=== PATIENT | male | born 1970 ===

== ENCOUNTER 2020-09-26 16:31 | Inpatient (IN) | payer SELFPAY ==
[~2020-09-26 16:31] MED LIST: Iopamidol-370 76% 500 ML 1 ML ONE
[2020-09-26 17:09] LABS: #Eosinphils 0.1 thou/uL (0.0-0.7); #Lymphocytes 2.3 thou/uL (1.20-3.40); #Monocytes 0.8 thou/uL (0.11-0.59); #Neutrophils 4.3 thou/uL (1.40-6.50); %Basophils 0.2 % (0.0-1.0); %Eosinophils 1.1 % (0.0-10.0); %Lymphocytes 30.2 % (21.0-51.0); %Monocytes 10.5 % (0.0-10.0); %Neutrophils 58.1 % (42.0-75.0); Hemoglobin 14.8 g/dL (14.0-18.0); Mean Corpuscular HGB CONC 35.7 g/dL (32.0-36.0); Mean Corpuscular Hemoglobin 30.8 pg (27.0-31.0); Mean Corpuscular Volume 86.1 fL (78.0-98.0); Mean Platelet Volume 8.5 fL (7.4-10.4); Platelet Count 264 thou/uL (130-400); RBC Distribution Width 11.5 % (11.5-14.5); Red Blood Cell (RBC) Count 4.82 mill/uL (4.70-6.10); White Blood Cell (WBC) Count 7.5 thou/uL (4.8-10.8)
--- NOTE | 2020-09-26 17:12 | RAD ---
XR Chest 1 View Portable HISTORY: Cough, shortness of breath COMPARISON: None FINDINGS: The heart size is normal. The lungs are well expanded without lobar consolidation, pneumothorax or p leural effusions. There are mild patchy peripheral opacities, left greater than right. Possibility of viral pneumonia s hould be considered.
[2020-09-26] MEDS ORDERED: Dexamethasone 10 MG/ML VIAL ONE (17:17)
[2020-09-26] MEDS ORDERED: Ondansetron PF 4 MG/2 ML Vial ONE (17:17)
[2020-09-26 17:36] LABS: ALT (SGPT) 32 U/L (8-55); AST (SGOT) 20 U/L (5-34); Albumin 3.8 g/dL (3.5-5.0); Alkaline Phosphatase 97 U/L (40-110); Anion Gap 25 mmol/L (10-20); BUN (Urea Nitrogen) 21 mg/dL (8.9-20.6); Bilirubin, Total 0.6 mg/dL (0.2-1.2); CK (CPK) 16 U/L (30-200); Calc. Creatinine Clearance 0 mL/min (70-130); Calcium 9.5 mg/dL (7.8-10.44); Carbon Dioxide 17 mmol/L (22-29); Chloride 95 mmol/L (98-107); Globulin 4.3 g/dL (2.4-3.5); Glucose 416 mg/dL (70-105); Lipase 58 U/L (8-78); Magnesium 2.2 mg/dL (1.6-2.6); Potassium 3.7 mmol/L (3.5-5.1); Protein, Total 8.1 g/dL (6.0-8.3); Sodium 133 mmol/L (136-145)
[2020-09-26 18:22] LABS: SARS-CoV-2 NAA Rapid Test DETECTED (NotDetected)
--- NOTE | 2020-09-26 18:40 | CT ---
CT PULMONARY ANGIOGRAM WITH IV CONTRAST AND 3D POSTPROCESSIN09/26/20 HISTORY: Cough, shortness of breath, elevated D-dimer. FINDINGS: No filling defects are seen in the pulmonary arterial vasculature to suggest pulmonary embolism. The thoracic aorta is well opacified without aneurysmal dissection. No pleural or pericardial effusions a re seen. No mediastinal, hilar, axillary mass or lymphadenopathy seen. no pneumothoraces are identifi ed. There are multifocal patchy predominantly peripheral ground glass opacities bilaterally. The upper abdominal tomograms are unremarkable. There are mild degenerative changes in the spine. IMPRESSION: 1. No CT evidence of pulmonary embolism. 2. Findings suspicious for pneumonia. Clinically correlate for COVID-19 infection. POS: OFF
--- NOTE | 2020-09-26 19:11 | PDOC.FPRHP ---
- History of Present Illness Chief Complaint: cough, SOB x 10 days, worsening SOB History of Present Illness: This is a 50yo M here with CC of cough and SOB x 10 days. He started feeling more SOB over the last 2-3 days. He called his PCP then and was given a zpack and albuterol inhaler. He checked his pulse ox at home and it was 86% on RA. When ambulates goes into the 80s. He decided to come in due to this. He reports that he has not been able to drink or eat much over the last 2-3 days due to feeling more SOB. He denies any fever, endorses mild chill. Endorses dry cough. Denies sore throat, loss of taste or smell. Endorses joint pain in his knees especially. Of note, he has a hx of parkinsons disease. He has a tremor and memory issues because of this. He does take medication, he is unsure what meds he is on. He also has a hx of DM, he does not think he is on insulin. He has lost about 80lbs over the last year that he attributes to his parkinsons. ED Course: zofran, 1L NS, 8mg dexamethasone - Allergies/Adverse Reactions Allergies Allergy/AdvReac Type Severity Reaction Status Date / Time No Known Allergies Allergy Verified 09/27/20 00:17 - History PMHx: Parkinsons, DM2, HTN, childhood asthma PSHx: jaw reconstruction, R knee surgery as youth x 2, hernia surgery, L wrist repair FHx: non contributory Social: drinks socially about twice a month, denies drug use, no smoking hx; lives at home with family - Review of Systems General: reports: fever/chills, weight/appetite/sleep changes, fatigue. denies: night sweats Eyes: denies: vision changes ENT: denies: nasal congestion, rhinorrhea Respiratory: reports: shortness of breath. denies: cough, congestion, exercise intolerance Cardiovascular: denies: chest pain, palpitation, edema, paroxysmal nocturnal dyspnea, orthopnea Gastrointestinal: denies: nausea, vomiting, diarrhea, constipation, abdominal pain Skin: denies: rashes, lesions, jaundice Musculoskeletal: reports: pain. denies: swelling Neurological: denies: syncope, weakness Psychological: denies: anxiety, depression - Vital signs BP: 120/86, Pulse: 110, Resp: 24, O2 sat: 97 on (1L Oxygen), Time: 09/26/2020 18:53. Weight 95kg BP: 115/84, Pulse: 120, Resp: 19, Temp: 98.3 (Oral), Pain: 3, O2 sat: 92 on (Room Air), Time: 09/26/2020 16:32. - Physical Exam Constitutional: NAD, awake, alert and oriented, well developed -Constitutional: flat affect HEENT: normocephalic and atraumatic, PERRLA, EOMI, grossly normal vision, grossly normal hearing -HEENT: MM dry Neck: supple, FROM, trachea midline Heart: RRR, normal S1/S2, no murmurs/rubs/gallops, pulses present, no edema Lungs: CTAB, no wheezing -Lungs: poor insp effort Abdomen: soft, non-tender, bowel sounds present, no masses/distention, no hernias Musculoskeletal: normal structure, normal tone, ROM grossly normal Neurological: no focal deficit, CN II-XII intact Skin: no rash/lesions, good turgor, capillary refill <2 seconds Heme/Lymphatic: no unusual bruising or bleeding, no purpura, no petechia -Psychiatric: flat affect, unable to recall medications, reports memory issues FMR H&P: Results - Labs Result Diagrams: 09/26/20 16:52 09/26/20 20:25 Lab results: WBC 7.5 thou/uL (4.8-10.8) 09/26/20 16:52 Hgb 14.8 g/dL (14.0-18.0) 09/26/20 16:52 Hct 41.5 % (42.0-52.0) L 09/26/20 16:52 MCV 86.1 fL (78.0-98.0) 09/26/20 16:52 Plt Count 264 thou/uL (130-400) 09/26/20 16:52 Neutrophils % 58.1 % (42.0-75.0) 09/26/20 16:52 Sodium 133 mmol/L (136-145) L 09/26/20 16:52 Potassium 3.7 mmol/L (3.5-5.1) 09/26/20 16:52 Chloride 95 mmol/L (98-107) L 09/26/20 16:52 Carbon Dioxide 17 mmol/L (22-29) L 09/26/20 16:52 BUN 21 mg/dL (8.9-20.6) H 09/26/20 16:52 Creatinine 1.50 mg/dL (0.7-1.3) H 09/26/20 16:52 Glucose 416 mg/dL (70-105) H 09/26/20 16:52 Calcium 9.5 mg/dL (7.8-10.44) 09/26/20 16:52 Total Bilirubin 0.6 mg/dL (0.2-1.2) 09/26/20 16:52 AST 20 U/L (5-34) 09/26/20 16:52 ALT 32 U/L (8-55) 09/26/20 16:52 Alkaline Phosphatase 97 U/L (40-110) 09/26/20 16:52 Creatine Kinase 16 U/L (30-200) L 09/26/20 16:52 Serum Total Protein 8.1 g/dL (6.0-8.3) 09/26/20 16:52 Albumin 3.8 g/dL (3.5-5.0) 09/26/20 16:52 Lipase 58 U/L (8-78) 09/26/20 16:52 - Radiology Interpretation Other Status: report reviewed by me (CTA neg for PE; multifocal patchy ground glass opacities) Chest x-ray Status: report reviewed by me (mild patchy peripheral opacities, L>R) FMR H&P: A/P - Plan Acute hypoxic resp failure 2/2 COVID PNA Pulse ox 86% on RA at home. Satting well on 1L NC in the ER. S/p dexamethasone. CTA neg for PE. CXR cw covid.Flu neg. - Will continue steroids. Will place order for conv plasma. Will continue duon ebs. Out of window for remdesivir. - Procal pending, will hold off on abx for now. - Awake proning as able - Ddimer elevated (0.83), will do ppx lovenox. Trend q2days - Continue NC as needed and try to ween as tolerated CRISELDA Bun/Cr 21/1.5. Unknown baseline. - Will give IVF, trend BUN/Cr DM2 with anion gap Glucose of 416 on arrival. Gap of 21. - Will get BHB, urine to check for ketones, VBG, serum osm - Will give 2 additional liters, continue mIVF - Will recheck BMP in 4 hours to make sure gap is trending in right direction Parkinsons disease - aware, continue home meds Dispo: admit to medical, inpt Diet: CC Code: DNR - confirmed with patient PCP: [facility] Case discussed with Dr. Reddy Addendum - Attending - Attending Attestation Date/Time: 09/26/202023 I personally evaluated the patient and discussed the management with Dr. Ferris. I agree with the History, Examination, Assessment and Plan documented above with any addition or exceptions noted below. The patient is admitting with covid pneumonia and acute hypoxic respiratory f ailure. Pt is requiring oxygen via nasal cannula. Will start decadron, convalescent plasma. Titrate o2, trend labs.
[2020-09-26] MEDS ORDERED: Acetaminophen 650 MG Suppository PR PRN (19:22)
[2020-09-26] MEDS ORDERED: Acetaminophen 325 MG TAB PO PRN (19:22)
[2020-09-26] MEDS ORDERED: HumaLOG 300 UNITS/3 ML VIAL SC PRN ×2 (19:22→23:43)
[2020-09-26] MEDS ORDERED: Dextrose 50% Abboject 50 ML SYRINGE SLOW IVP PRN (19:22)
[2020-09-26] MEDS ORDERED: Dextrose 5% in Water 1,000 ML IV PRN (19:22)
[2020-09-26] MEDS ORDERED: Lactated Ringer's 1,000 ML IV SCH (19:30)
[2020-09-26] MEDS ORDERED: Insulin Regular 300 UNITS/3 ML VIAL ONE (20:12)
[2020-09-26 21:03] LABS: Hemoglobin A1c 13.8 % (4.0-6.0)
[2020-09-26 21:15] LABS: Anion Gap 21 mmol/L (10-20); BUN (Urea Nitrogen) 20 mg/dL (8.9-20.6); Calc. Creatinine Clearance 0 mL/min (70-130); Calcium 9.1 mg/dL (7.8-10.44); Carbon Dioxide 17 mmol/L (22-29); Chloride 99 mmol/L (98-107); Glucose 413 mg/dL (70-105); Potassium 4.4 mmol/L (3.5-5.1); Sodium 133 mmol/L (136-145)
[2020-09-26 22:38] VITALS: BMI 27.7
[2020-09-26] MEDS: Lactated Ringer's 1,000 ML IV SCH (23:19)
[2020-09-26] MEDS: HumaLOG 300 UNITS/3 ML VIAL SC PRN (23:30)
[2020-09-27] MEDS: HumaLOG 300 UNITS/3 ML VIAL SC PRN ×3 (01:03→06:12)
[2020-09-27 01:33] LABS: Anion Gap 20 mmol/L (10-20); BUN (Urea Nitrogen) 23 mg/dL (8.9-20.6); Calc. Creatinine Clearance 86 mL/min (70-130); Calcium 8.5 mg/dL (7.8-10.44); Carbon Dioxide 16 mmol/L (22-29); Chloride 100 mmol/L (98-107); Potassium 4.2 mmol/L (3.5-5.1); Sodium 132 mmol/L (136-145)
[2020-09-27 01:38] LABS: Glucose 564 mg/dL (70-105)
[2020-09-27] MEDS: Lactated Ringer's 1,000 ML IV SCH ×4 (02:13→21:59)
[2020-09-27 05:00] LABS: #Lymphocytes 0.8 thou/uL (1.20-3.40); #Monocytes 0.3 thou/uL (0.11-0.59); #Neutrophils 3.6 thou/uL (1.40-6.50); %Basophils 0.2 % (0.0-1.0); %Eosinophils 0.2 % (0.0-10.0); %Lymphocytes 16.5 % (21.0-51.0); %Monocytes 5.9 % (0.0-10.0); %Neutrophils 77.3 % (42.0-75.0); Mean Corpuscular HGB CONC 34.5 g/dL (32.0-36.0); Mean Corpuscular Hemoglobin 29.8 pg (27.0-31.0); Mean Corpuscular Volume 86.3 fL (78.0-98.0); Mean Platelet Volume 8.3 fL (7.4-10.4); Platelet Count 244 thou/uL (130-400); RBC Distribution Width 11.4 % (11.5-14.5); Red Blood Cell (RBC) Count 4.03 mill/uL (4.70-6.10); White Blood Cell (WBC) Count 4.7 thou/uL (4.8-10.8)
[2020-09-27 05:17] LABS: Anion Gap 18 mmol/L (10-20); BUN (Urea Nitrogen) 21 mg/dL (8.9-20.6); Calc. Creatinine Clearance 95 mL/min (70-130); Calcium 8.9 mg/dL (7.8-10.44); Carbon Dioxide 18 mmol/L (22-29); Chloride 103 mmol/L (98-107); Glucose 355 mg/dL (70-105); Potassium 3.7 mmol/L (3.5-5.1); Sodium 135 mmol/L (136-145)
[2020-09-27] MEDS ORDERED: HumaLOG 300 UNITS/3 ML VIAL SC PRN ×2 (08:21→18:28)
[2020-09-27] MEDS: Enoxaparin Sodium 40 MG/0.4 ML SYRINGE SC SCH (08:31)
[2020-09-27] MEDS: Dexamethasone 4 MG TAB PO SCH (08:32)
[2020-09-27 10:12] LABS: Anion Gap 19 mmol/L (10-20); BUN (Urea Nitrogen) 18 mg/dL (8.9-20.6); Calc. Creatinine Clearance 110 mL/min (70-130); Carbon Dioxide 19 mmol/L (22-29); Chloride 104 mmol/L (98-107); Glucose 257 mg/dL (70-105); Potassium 3.9 mmol/L (3.5-5.1); Sodium 138 mmol/L (136-145)
[2020-09-27] MEDS ORDERED: metFORMIN 500 MG TAB PO SCH (10:45)
[2020-09-27] MEDS ORDERED: Insulin Glargine 10 UNITS in Pre-Filled Syringe 1 EACH SC SCH (10:45)
--- NOTE | 2020-09-27 10:48 | PDOC.FM ---
- Subjective Subjective: Pt reports feeling well, he is on O2 but denies SOB and cough at this point. no new complaints - Objective Vital Signs & Weight: Vital Signs (12 hours) Temp Pulse Pulse Resp BP BP Pulse Ox 09/27/20 08:00 98 F 100 18 125/68 94 L 09/27/20 05:30 97.6 F 89 12 115/67 99 09/27/20 04:35 98.0 F 99 13 116/68 95 09/27/20 04:01 98.0 F 96 15 113/70 100 09/27/20 00:38 98.8 F 107 H 20 133/77 97 Weight Weight 92.703 kg I&O: 09/26/20 09/27/20 09/28/20 06:59 06:59 06:59 Intake Total 3632 Balance 3632 Result Diagrams: 09/27/20 04:51 09/27/20 14:15 Phys Exam - Physical Examination Constitutional: NAD HEENT: moist MMs, sclera anicteric Neck: supple, full ROM Respiratory: no wheezing mild crackles diffusely Cardiovascular: RRR, no significant murmur Gastrointestinal: soft, non-tender Musculoskeletal: no edema, pulses present Neurological: normal sensation, moves all 4 limbs Psychiatric: normal affect, A&O x 3 Skin: no rash, normal turgor Dx/Plan - Plan Plan: Acute hypoxic resp failure 2/2 COVID PNA A- stable on 2L on o2. S/p dexamethasone. CTA neg for PE. CXR cw covid.Flu neg. P- dexamethasone and conv plasma. Will continue duonebs. Out of window for remdesivir. - Procal pending, will hold off on abx for now. - Awake proning as able - Ddimer elevated (0.83), will do ppx lovenox. Trend q2days - Continue NC as needed and try to ween as tolerated DKA A- greatly improved with SC insulin, nearly resolved. Glucose of 416 on arrival. Gap of 21. BG in 200s and Gap 14. P- will give 10u Lantus and continue aggressive SSI as gap almost closed -repeat BMP in 3 hours, start drip if no improvment -pt will need to plan to be DCd with insulin in addition to his home metformin and unknown second oral med. Will add the 10u lantus to any SSI he requires today and set that as basline daily insulin need Parkinsons disease - aware, continue home meds CRISELDA -resolved Code: DNI, cardiac only PCP: [facility] Addendum - Attending - Attending Attestation Date/Time: 09/27/20 [id number] I personally evaluated the patient and discussed the management with Dr. Chakraborty. I agree with the History, Examination, Assessment and Plan documented above with any addition or exceptions noted below. Pt is on 2 liters oxygen via nasal cannula. Will wean as able. He has received convalescent plasma and dexamethasone. Reagrding dka, repeating labs to recheck anion gap. Treating with insulin. A1c is elevated.
[2020-09-27 14:43] LABS: Anion Gap 18 mmol/L (10-20); BUN (Urea Nitrogen) 17 mg/dL (8.9-20.6); Calc. Creatinine Clearance 98 mL/min (70-130); Carbon Dioxide 21 mmol/L (22-29); Chloride 101 mmol/L (98-107); Glucose 330 mg/dL (70-105); Sodium 136 mmol/L (136-145)
--- NOTE | 2020-09-27 14:55 | PDOC.FMACP ---
Advance Care Planning - Problem (1) COVID-19 Status: Acute Code(s): U07.1 - COVID-19 (2) Parkinson disease Status: Acute Code(s): G20 - PARKINSON'S DISEASE (3) Diabetes mellitus Status: Acute Code(s): E11.9 - TYPE 2 DIABETES MELLITUS WITHOUT COMPLICATIONS (4) Palliative care encounter Status: Acute Code(s): Z51.5 - ENCOUNTER FOR PALLIATIVE CARE - Note Participants: patient, palliative care Summary: Introduced Advanced Care Planning. The diagnosis, prognosis and goals of care were discussed. Appropriate forms and documentation to accomplish the goals of care were discussed. All questions were answered. Discussed his disease process paired with Covid. Palliative care Registrar will follow up 09/28 to complete MPOA and Directive to Physician Confirmed cardiac only for resuscitation if needed. Time Spent (mins): 20
[2020-09-27] MEDS ORDERED: HumaLOG 300 UNITS/3 ML VIAL SC SCH (15:15)
[2020-09-27] MEDS ORDERED: Albuterol 200 PUFF (6.7GM INHALER) INH PRN (17:15)
[2020-09-27] MEDS: metFORMIN 500 MG TAB PO SCH (18:02)
[2020-09-27] MEDS ORDERED: Insulin Regular 300 UNITS/3 ML VIAL SC SCH (18:45)
[2020-09-27 19:35] LABS: Anion Gap 18 mmol/L (10-20); BUN (Urea Nitrogen) 19 mg/dL (8.9-20.6); Calc. Creatinine Clearance 96 mL/min (70-130); Carbon Dioxide 21 mmol/L (22-29); Chloride 102 mmol/L (98-107); Glucose 300 mg/dL (70-105); Potassium 3.7 mmol/L (3.5-5.1); Sodium 137 mmol/L (136-145)
[2020-09-28] MEDS ORDERED: HumaLOG 300 UNITS/3 ML VIAL SC SCH (00:45)
[2020-09-28 01:27] LABS: Anion Gap 16 mmol/L (10-20); BUN (Urea Nitrogen) 20 mg/dL (8.9-20.6); Calc. Creatinine Clearance 113 mL/min (70-130); Calcium 8.7 mg/dL (7.8-10.44); Carbon Dioxide 20 mmol/L (22-29); Chloride 104 mmol/L (98-107); Glucose 269 mg/dL (70-105); Potassium 3.4 mmol/L (3.5-5.1); Sodium 137 mmol/L (136-145)
[2020-09-28] MEDS: HumaLOG 300 UNITS/3 ML VIAL SC PRN ×6 (06:23→17:52)
[2020-09-28] MEDS: Lactated Ringer's 1,000 ML IV SCH ×4 (06:27→20:08)
[2020-09-28] MEDS: Dexamethasone 4 MG TAB PO SCH (08:00)
--- NOTE | 2020-09-28 08:39 | PDOC.FM ---
- Subjective Subjective: Doing well this morning, no acute events overnight. Weaned to RA and doing well. Ambulating. No n/v. Denies CP, SOB, CASE, vision changes. Eager for discharge. Has BG monitor at home, states has been on insulin in the past but not currently on insulin pre-admission. - Objective MAR Reviewed: Yes Vital Signs & Weight: Vital Signs (12 hours) Temp Pulse Resp BP Pulse Ox 09/28/20 04:00 97.4 F L 77 18 146/83 H 97 09/27/20 23:40 98.3 F 92 16 141/80 H 92 L Weight Weight 92.703 kg I&O: 09/27/20 09/28/20 09/29/20 06:59 06:59 06:59 Intake Total 3632 1984 Balance 3632 1984 Result Diagrams: 09/27/20 04:51 09/28/20 12:25 Phys Exam - Physical Examination Constitutional: NAD (resting comfortably) HEENT: moist MMs Neck: supple Respiratory: no wheezing, no rales, no rhonchi, clear to auscultation bilateral Cardiovascular: RRR, no significant murmur, no rub Gastrointestinal: soft, non-tender, positive bowel sounds Musculoskeletal: no edema Neurological: moves all 4 limbs Psychiatric: normal affect, A&O x 3 Dx/Plan (1) COVID-19 Code(s): U07.1 - COVID-19 Status: Acute (2) Diabetes mellitus Code(s): E11.9 - TYPE 2 DIABETES MELLITUS WITHOUT COMPLICATIONS Status: Acute (3) Parkinson disease Code(s): G20 - PARKINSON'S DISEASE Status: Acute - Plan Plan: 50yo M with h/o DMII, Parkinson's presented in DKA and Acute hypoxic respiratory failure 2/2 COVID PNA #Acute hypoxic resp failure 2/2 COVID PNA, improved - Initially on 2L NC - now weaned to RA and satting mid-90s - On dexa 6mg daily. CTA negative for PE - Procal negative, no indication for abx - Respiratory status overall improved, encourage ambulation, monitor #DKA, resolved - Initial AG of 21, BHB 3, BG 416 on arrival - S/p SC insulin, given 40u SS in past 24 hours - 20u Lantus this AM, will need continued titration with aggressive SS - Monitor lytes and replace as indicated - Repeat BMP at lunch - Will need close outpt monitoring upon discharge #Parkinsons disease - aware, continue home meds #CRISELDA -resolved Code: DNI, cardiac only PCP: ADAN IVF: LR @ 135cc/hr -> Decrease to 100cc/hr Diet: HH VTE: Lovenox Dispo: AHRF resolved, continue dexa for COVID-PNA. DKA resolved, will need better BG control prior to discharge. Continue to monitor and titrate meds. Anticipate d/c in next 24-48 hours pending clinical course. Addendum - Attending - Attending Attestation Date/Time: 09/28/20 [id number] I personally evaluated the patient and discussed the management with Dr. Gaxiola I agree with the History, Examination, Assessment and Plan documented above with any addition or exceptions noted below - Patient denies any complaints. Denies any SOB. Afebrile VSS. A/P: 1) Acute hypoxic resp failure secondary to COVID pneumonia- improved. 2) DM- poorly controlled; restarted on insulin. Continue with current meds. Possible d/c tomorrow.
[2020-09-28] MEDS ORDERED: Potassium Chloride 20 MEQ TAB PO SCH (08:45)
[2020-09-28] MEDS ORDERED: Insulin Glargine 20 UNITS in Pre-Filled Syringe 1 EACH SC SCH (09:00)
[2020-09-28] MEDS: Enoxaparin Sodium 40 MG/0.4 ML SYRINGE SC SCH (09:50)
[2020-09-28] MEDS: metFORMIN 500 MG TAB PO SCH ×2 (09:53→16:28)
--- NOTE | 2020-09-28 11:21 | PDOC.PALFU ---
Palliative Care Follow-up Note Palliative care completed MPOA and Directive to physician. Original given to patient and copies placed on chart for medical records. Palliative care will sign off as Directives addressed, discussed and completed.
[2020-09-28 12:52] LABS: Anion Gap 14 mmol/L (10-20); BUN (Urea Nitrogen) 17 mg/dL (8.9-20.6); Calc. Creatinine Clearance 120 mL/min (70-130); Calcium 8.8 mg/dL (7.8-10.44); Carbon Dioxide 23 mmol/L (22-29); Chloride 104 mmol/L (98-107); Glucose 326 mg/dL (70-105); Potassium 3.7 mmol/L (3.5-5.1); Sodium 137 mmol/L (136-145)
[2020-09-28] MEDS ORDERED: NPH, Human Insulin Isophane 300 UNIT/3 ML VIAL SC SCH (21:00)
[2020-09-29] MEDS: Lactated Ringer's 1,000 ML IV SCH ×2 (04:34→07:47)
[2020-09-29 06:50] LABS: #Eosinphils 0.1 thou/uL (0.0-0.7); #Lymphocytes 1.8 thou/uL (1.20-3.40); #Monocytes 0.6 thou/uL (0.11-0.59); %Eosinophils 1.4 % (0.0-10.0); %Lymphocytes 32.8 % (21.0-51.0); %Monocytes 10.8 % (0.0-10.0); Mean Corpuscular Hemoglobin 31.6 pg (27.0-31.0); Mean Corpuscular Volume 87.8 fL (78.0-98.0); Mean Platelet Volume 8.1 fL (7.4-10.4); Platelet Count 232 thou/uL (130-400); RBC Distribution Width 11.2 % (11.5-14.5); Red Blood Cell (RBC) Count 3.48 mill/uL (4.70-6.10); White Blood Cell (WBC) Count 5.5 thou/uL (4.8-10.8)
[2020-09-29 07:09] LABS: Anion Gap 14 mmol/L (10-20); BUN (Urea Nitrogen) 12 mg/dL (8.9-20.6); Calc. Creatinine Clearance 152 mL/min (70-130); Calcium 8.5 mg/dL (7.8-10.44); Carbon Dioxide 26 mmol/L (22-29); Chloride 103 mmol/L (98-107); Glucose 185 mg/dL (70-105); Potassium 3.3 mmol/L (3.5-5.1); Sodium 140 mmol/L (136-145)
[2020-09-29] MEDS: metFORMIN 500 MG TAB PO SCH ×2 (07:43→16:00)
[2020-09-29] MEDS: Dexamethasone 4 MG TAB PO SCH (07:44)
[2020-09-29] MEDS: Enoxaparin Sodium 40 MG/0.4 ML SYRINGE SC SCH (07:44)
[2020-09-29] MEDS ORDERED: Potassium Chloride 20 MEQ TAB PO SCH (08:00)
[2020-09-29] MEDS: HumaLOG 300 UNITS/3 ML VIAL SC PRN ×3 (08:27→16:14)
--- NOTE | 2020-09-29 08:30 | PDOC.FM ---
- Subjective Subjective: Doing well this morning, no acute events overnight. Good spirits. Eager for discharge. Ambulating in the room well. Denies any CP, SOB, n/v, fever/chills, diaphoresis, CASE, vision changes. Tolerating PO well, states has outpt PCP and can follow up this week with them. Has test strips and glucometer at home. Able to afford NPH in past. - Objective MAR Reviewed: Yes Vital Signs & Weight: Vital Signs (12 hours) Temp Pulse Resp BP Pulse Ox 09/29/20 07:53 97.8 F 85 16 150/90 H 92 L 09/29/20 04:43 97.5 F L 63 20 145/82 H 93 L 09/29/20 00:39 97.8 F 64 18 147/88 H 93 L Weight Weight 92.703 kg I&O: 09/28/20 09/29/20 09/30/20 06:59 06:59 06:59 Intake Total 1984 1320 Balance 1984 1320 Result Diagrams: 09/29/20 06:15 09/29/20 06:15 Phys Exam - Physical Examination Constitutional: NAD (good spirits, comfortable) HEENT: moist MMs Neck: supple Respiratory: no wheezing, no rales, no rhonchi, clear to auscultation bilateral Cardiovascular: RRR, no significant murmur Gastrointestinal: soft, non-tender, no distention, positive bowel sounds Musculoskeletal: no edema Neurological: moves all 4 limbs Psychiatric: normal affect, A&O x 3 Dx/Plan (1) COVID-19 Code(s): U07.1 - COVID-19 Status: Acute (2) Diabetes mellitus Code(s): E11.9 - TYPE 2 DIABETES MELLITUS WITHOUT COMPLICATIONS Status: Acute (3) Parkinson disease Code(s): G20 - PARKINSON'S DISEASE Status: Acute - Plan Plan: 50yo M with h/o DMII, Parkinson's presented in DKA and Acute hypoxic respiratory failure 2/2 COVID PNA #DKA, resolved, in setting of uncontrolled DM - Initial AG of 21, BHB 3, BG 416 on arrival. Gap closed. - S/p SC insulin, given 40u SS in past 24 hours - Monitor lytes and replace as indicated - Transition to NPH due to insurance. 30u in AM and 15u in PM. Will need down titration once off steroids. - Will need close outpt monitoring upon discharge - Will check Lipid panel, needs to be on statin, will start Lipitor 20mg. #Acute hypoxic resp failure 2/2 COVID PNA, resolved - Initially on 2L NC - now weaned to RA and satting mid-90s - On dexa 6mg daily. CTA negative for PE - Procal negative, no indication for abx - Respiratory status overall improved, encourage ambulation, monitor #Parkinsons disease - aware, continue home meds #CRISELDA -resolved #HTN - Started on Lisinopril Code: DNI, cardiac only PCP: ParulOT IVF: SL Diet: CC VTE: Lovenox Dispo: AHRF resolved, continue dexa for COVID-PNA. DKA resolved, will need better BG control prior to discharge. Continue to monitor and titrate meds. Anticipate d/c this PM pending BG control. Addendum - Attending - Attending Attestation Date/Time: 09/30/20 1600 I personally evaluated the patient and discussed the management with Dr. Gaxiola on 09/29/2020 I agree with the History, Examination, Assessment and Plan documented above with any addition or exceptions noted below - Patient denies any complaints. Ready to go home. Afebrile VSS. A/P: 1) DKA- resolved; BG stable and insulin adjusted. WIll d/c home today and follow-up with PCP. 2) COVID pneumonia- no O2 requirement; stable.
[2020-09-29] MEDS ORDERED: NPH, Human Insulin Isophane 300 UNIT/3 ML VIAL SC SCH ×3 (09:00→21:00)
[2020-09-29] MEDS ORDERED: Lisinopril 10 MG TAB PO SCH (09:00)
[2020-09-29 09:26] LABS: Cardiac Risk 8.3 (Less than 4.5)
[2020-09-29 16:31] VITALS: BP 131/84; TEMP 97.8
[2020-09-29] MEDS ORDERED: Atorvastatin Calcium 20 MG TAB PO SCH (21:00)
--- NOTE | 2020-09-30 07:22 | DIS ---
DATE OF ADMISSION: 09/26/2020 DATE OF DISCHARGE: 09/29/2020 RESIDENT: Sandoval Gaxiola MD. ADMITTING ATTENDING: Ashanti Reddy MD. DISCHARGE ATTENDING: Janell Cavanaugh MD. CONSULTS: None. PROCEDURES: 1. Chest x-ray performed on 09/26/2020, demonstrating mild patchy peripheral opacities, left greater than right. Possibility of viral pneumonia should be considered. 2. CTA chest performed on 09/26/2020, demonstrating no evidence of pulmonary embolism. Findings suspicious for pneumonia. Clinically correlate for COVID-19 infection. 3. Transfusion, convalescent plasma on 09/27/2020. PRIMARY DIAGNOSES: 1. Diabetic ketoacidosis, resolved, in the setting of uncontrolled diabetes type 2. 2. Acute hypoxic respiratory failure secondary to COVID pneumonia. SECONDARY DIAGNOSES: 1. Parkinson's. 2. Acute kidney injury, resolved. 3. Hypertension. 4. Hyperlipidemia. DISCHARGE MEDICATIONS: 1. Metformin 1000 mg p.o. b.i.d. 2. Atorvastatin 20 mg p.o. at bedtime. 3. NPH 30 units subcu q.a.m. and 12 units subcu q.p.m. 4. Lisinopril 10 mg p.o. daily. HISTORY OF PRESENT ILLNESS/HOSPITAL COURSE: The patient is a 50-year-old male with history of type 2 diabetes, who presented with a chief complaint of cough and shortness of breath for 10 days. He was feeling more shortness of breath over the past 2 to 3 days, decreased p.o. intake and fatigue. He was initially admitted for acute hypoxic respiratory failure secondary to COVID pneumonia and found to be in DKA. Regarding the patient's acute hypoxic respiratory failure secondary to COVID pneumonia, the patient was initially placed on 1 L nasal cannula and saturating in the upper 90s. He was given dexamethasone and convalescent plasma. He was out of the treatment window for remdesivir. Procalcitonin was negative. D-dimer was elevated and thus patient had a CTA that was negative for PE. The patient did very well and was able to be weaned down to room air. At the time of discharge, the patient was over 36 hours on room air, able to ambulate without significant shortness of breath, desaturations. The patient was very eager to go home. The patient also presented with a mild CRISELDA, this resolved with IV fluids. The patient also presented with DKA with an anion gap of 21 and elevated beta-hydroxybutyrate and a glucose of 416. The patient was given aggressive IV fluid resuscitation and subcutaneous insulin. His BMPs were trended and blood glucose monitored with resolution of his DKA with subcutaneous insulin alone. The patient's gap closed. His diet was advanced and he tolerated p.o. well without any significant nausea or vomiting. Throughout hospitalization, his blood glucose was monitored and insulin adjusted. The patient had been on NPH prior and was able to afford this. Thus, he was discharged home on a regimen of NPH. The patient states he had a blood glucose monitor to check his sugars. The patient was risk stratified and found to be mildly hypertensive and thus was started on lisinopril as well as hyperlipidemia, and started on atorvastatin. At the time of discharge, the patient was very eager to be discharged home. Discharge plan was discussed with the patient. The discharge plan included checking his blood glucose 4 times daily, fasting and preprandial. Insulin instructions were given. The patient was instructed to follow up with a primary care provider within 1 to 3 days of discharge for close monitoring of his blood glucose and respiratory symptoms. The patient was encouraged to ambulate frequently and strict return precautions were given. The patient voiced agreement and understanding of the discharge plan and was very eager to be discharged home. All questions were answered. DISPOSITION: Stable. DISCHARGE INSTRUCTIONS: 1. Location: Home. 2. Diet: Diabetic. 3. Activity: As tolerated. 4. Followup: The patient will followup with his primary care physician within 1 to 3 days of discharge for close monitoring of his blood glucose and respiratory status. Job ID: [id number]
--- NOTE | 2020-10-21 12:49 | EKG ---
Test Reason : Blood Pressure : / mmHG Vent. Rate : 119 BPM Atrial Rate : 119 BPM P-R Int : 142 ms QRS Dur : 116 ms QT Int : 354 ms P-R-T Axes : 069 -57 054 degrees QTc Int : 497 ms Sinus tachycardia with Premature atrial complexes with Abberant conduction Possible Left atrial enlargement Left anterior fascicular block Left ventricular hypertrophy with QRS widening Cannot rule out Septal infarct , age undetermined Abnormal ECG Baseline Artifact Present Confirmed by TOÑO Delatorre, HARSH ([id number]), continuity editor CHACHA HUANG ([id number]) on 10/21/2020 12:48:49 PM Referred By: Confirmed By:HARSH LUNDBERG M.D.
== END 2020-09-29 16:19 | disposition home or self-care (01) | DRG 177 ==
LOC: ERS 16:31 → 2SW 19:12 → T4-B 09-28 12:18
PROVIDERS: ADMIT Family Medicine; ATTEND Family Medicine
PROC: 8E0ZXY6 Isolation (ICD-10-PCS; principal; 2020-09-26)
PROC: XW13325 Transfusion of Convalescent Plasma (Nonautologous) into Peripheral Vein, Percutaneous Approach, New Technology Group 5 (ICD-10-PCS; 2020-09-27)
DX: U07.1 COVID-19 (principal); J12.82 Pneumonia due to coronavirus disease 2019; J96.01 Acute respiratory failure with hypoxia; E11.10 Type 2 diabetes mellitus with ketoacidosis without coma; N17.9 Acute kidney failure, unspecified; Z51.5 Encounter for palliative care; G20 Parkinson's disease; I10 Essential (primary) hypertension; E11.65 Type 2 diabetes mellitus with hyperglycemia; E78.5 Hyperlipidemia, unspecified; Z79.899 Other long term (current) drug therapy; Z98.890 Other specified postprocedural states
CPT/HCPCS: 0240U; 36415; 36416; 36430; 71045; 71275; 80048; 80053; 80061; 82010; 82550; 83036; 83525; 83615; 83690; 83735; 83930; 84145; 84484; 85025; 85379; 86140; 86850; 86900; 86901; 93005; 96374; 96375; J1100; J1650; J1815; J2405; J8540; P9017; Q9967